=== PATIENT | female | born 1955 | race Caucasian/White ===

== ENCOUNTER 2023-03-14 07:19 | Observation (INO) ==
--- NOTE | 2023-03-06 09:01 | Anesthesiology Consultation ---
Date of Service March 06, 2023 Assessment & Plan (1) Encounter for pre-operative examination: - Covid screening: Per circular saw filer on 03/05/23: No known Covid positive contacts or current Covid related symptoms. No COVID positive test result in the past 90 days noted. -Outpatient joint assessment: Pt currently scheduled for inpatient pathway. If surgeon requests review for outpatient joint pathway, patient is not recommended candidate for outpatient joint program from anesthesia standpoint. -Possible difficult intubation:Hx trach(placed post-op thyroidectomy in 2019 due to surgical complications per pt)- subsequently removed 5 months later. No surgeries requiring intubation since then. - Chronic LLE edema: Chronic issue, fluctuating in severity for months-year. Blood clot ruled out with previous imaging per patient. Patient questioned if possible side effect of amlodipine (multiple family members had similar reaction with Amlodipine). She states that the Amlodipine has been on hold for approximately one week and swelling has improved (denies redness/warmth/pain to LLE). Patient reports that BP has been well controlled since Amlodipine stopped. Note written to PCP regarding LLE swelling- Per response from PCP office, they have office visit scheduled 03/12 to address further ([facility], [facility]). Chart Review Chart Review: Patient NOT seen in Pre Admission Testing History Surgery Operation Date: 03/14/23 11:45 Proposed Procedures p Right Total Knee Arthroplasty - Manuel Schneider MD Height/Weight Height: 5 ft 4 in Weight: 127.006 kg Allergies Allergy/AdvReac Type Severity Reaction Status Date / Time Penicillins Allergy Unknown RASH Unverified 03/05/23 16:02 Medications Home Medications Medication Instructions Recorded Confirmed Last Taken acetaminophen 500 mg tablet 1,000 mg PO TID 06/16/22 03/05/23 Unknown (Tylenol Extra Strength) ascorbic acid (vitamin C) 500 mg 500 mg PO 1500 06/16/22 03/05/23 Unknown tablet (Vitamin C) calcitriol 0.25 mcg capsule 0.5 mcg PO 1500 06/16/22 03/05/23 Unknown ferrous sulfate 325 mg (65 mg 325 mg PO 1500 06/16/22 03/05/23 Unknown iron) tablet levothyroxine 125 mcg tablet 125 mcg PO QAM 06/16/22 03/05/23 Unknown lisinopril 20 mg tablet 20 mg PO QAM 06/16/22 03/05/23 Unknown metoprolol succinate 50 mg 50 mg PO BID 06/16/22 03/05/23 Unknown tablet,extended release 24 hr omeprazole 20 mg tablet,delayed 20 mg PO QAM 06/16/22 03/05/23 Unknown release potassium chloride 20 mEq 20 meq PO QPM 06/16/22 03/05/23 Unknown tablet,extended release rosuvastatin 10 mg tablet 10 mg PO QAM 06/16/22 03/05/23 Unknown vedolizumab 300 mg intravenous 300 mg IV Q8WK 03/05/23 03/05/23 Unknown solution (Entyvio) Past Medical History Medical History Edema of left lower extremity Chronic LLE (fluctuating for years), blood clot ruled out with imaging ordered by PCP, patient questioned if possible side effect of amlodipine. Amlodipine held for approximately one week and swelling has improved (as of 03/06/23 phone assessment) GERD (gastroesophageal reflux disease) History of skin cancer removed History of thyroid cancer Dx 2019 s/p thyroidectomy HLD (hyperlipidemia) HTN (hypertension) Osteoarthritis Post-surgical hypothyroidism Sleep apnea CPAP (compliant) Ulcerative colitis Follows with GI Past Surgical History Surgical History Difficult intubation Hx trach (placed post-op thyroidectomy in 2019 due to complications per pt)- subsequently removed 5 months later History of anesthesia problem Thyroidectomy (2019) for thyroid cancer- per pt, unable to extubate post-op ([facility]) - required tracheostomy (x5 months > then removed) History of back surgery + Hardware History of cardiac catheterization 2018 ([facility]) > no stents History of colonoscopy History of total thyroidectomy History of tracheostomy D/t complications following thyroidectomy at [facility] (2019), subsequently removed 5 months later History of tubal ligation History of wisdom tooth extraction S/P thyroid biopsy Slow to wake up after anesthesia Social History Smoking Status: Never smoker Do You Dip or Chew Tobacco: No Hx Alcohol Use: No Hx Substance Use: No substance use type: does not use Lab Results Anesthesia Preop Results Results Anesthesia Widget: WBC 4.92 K/ul (4.8-10.8) 02/19/23 Hgb 14.6 g/dl (12.0-16.0) 02/19/23 Hct 43.6 % (37.0-47.0) 02/19/23 Plt 251 K/uL (130-400) 02/19/23 Na 141 mmol/L (136-145) 02/19/23 K 4.0 mmol/L (3.5-5.1) 02/19/23 Cl 104 mmol/L (98-107) 02/19/23 CO2 27 mmol/L (21-32) 02/19/23 BUN 10 mg/dl (6-23) 02/19/23 Creat 0.58 mg/dl (0.6-1.2) L 02/19/23 Glucose Level 95 mg/dl (70-99(Fasting)) 02/19/23 PT 10.9 Seconds (9.0-12.0) 02/19/23 PTT 26.3 Seconds (21.0-31.0) 02/19/23 INR 1.0 (0.9-1.1) 02/19/23 Urine Color Yellow 02/19/23 Urine Appearance Clear (Clear) 02/19/23 Urine pH 6.5 (4.5-7.5) 02/19/23 Urine Specific [place] 1.011 (1.000-1.030) 02/19/23 Urine Protein Negative (Negative) 02/19/23 Urine Glucose (UA) Negative (Negative) 02/19/23 Urine Ketones Negative (Negative) 02/19/23 Urine Blood Trace (Negative) H 02/19/23 Urine Nitrite Negative (Negative) 02/19/23 Urine Bilirubin Negative (Negative) 02/19/23 Urine Urobilinogen Negative (Negative) 02/19/23 Urine Leukocyte Esterase Trace (Negative) H 02/19/23 Urine WBC (Auto) 1-5 /hpf (0-5) 02/19/23 Urine RBC (Auto) 0-4 /hpf (0-4) 02/19/23 Urine Hyaline Casts (Auto) 0 /lpf (0-5) 02/19/23 Urine Epithelial Cells (Auto) 20-30 /lpf (0-5) H 02/19/23 Urine Bacteria (Auto) Negative (Negative) 02/19/23 Testing Electrocardiogram Date: 06/23/22 Findings: + NSR @ (82) Chest X-Ray Date: 06/23/22 FINDINGS: Lung volumes are normal. There is moderate enlargement of the cardiac silhouette. There is no pneumothorax or pleural effusion. Linear left lung opacity reflects atelectasis or scarring. Mediastinal contours are normal. There is no evidence for pulmonary edema. IMPRESSION: No acute cardiopulmonary findings. Cardiomegaly. Echocardiogram Date: 10/30/17 EF 55%. Top normal LV wall thickness. Grade 1 diastolic dysfunction. Slight LAD. Mild MR. Physiologic DC. Stress Test Date: 10/31/17 Type: nuclear Lexiscan stress ECG was negative for myocardial ischemia. Large, severe, partially reversible defect suggestive of ischemia on top of breast attenuation artifact. Small severe, reversible apical ischemia. No evidence of myocardial infarction. LVEF 69%. Subsequent cardiac cath done 11/2017 with no significant findings. Cardiac Catheterization Date: 11/12/17 Normal epicardial coronary arteries. Normal LV systolic function. Normal LV filling pressures. "Patient is considered low risk for perioperative myocardial ischemia"
--- NOTE | 2023-03-13 10:26 | History & Physical Report ---
Date of Service March 13, 2023 Assessment & Plan (1) Primary osteoarthritis of right knee: Plan: Treatment options discussed with patient. She would like to proceed with surgery. Risks, benefits and alternatives to surgery including but not limited to infection, DVT, pain, stiffness, need for revision surgery, damage to blood vessels, damage to nerves, PE, , were discussed with the patient and they wish to proceed. Plan on right total knee arthroplasty scheduled for [facility] on 03/14/[address] Schneider. Plan on Xarelto post op for DVT prophylaxis. She would like to go to [place] upon discharge from the hospital. All questions answered. Patient will follow up post op. History of Present Illness Chief Complaint: Right knee pain Primary Care Provider: Anjelica Huff 67yo female with PMHx significant for HTN, high cholesterol, UC, ALEJANDRA, hypothyroidism who presents with ongoing right knee pain. She has failed conservative measures. Pain is interfering with daily activities. Previously was scheduled for knee replacement earlier this year but was cancelled due to diverticulitis. Her ulcerative colitis is now much better controlled and has been cleared to proceed with surgery. Patient denies headaches, sweats, fevers, chills, double vision, blurred vision, cough, sore throat, dysphagia, chest pain, sob, wheezing, n/v/d/c, numbness, tingling, fatigue, urinary symptoms, mood disorders. ROS positive for right knee pain and stiffness. Allergies Allergy/AdvReac Type Severity Reaction Status Date / Time Penicillins Allergy Unknown RASH Unverified 03/05/23 16:02 Home Medications Medication Instructions Recorded Confirmed Type acetaminophen 500 mg tablet 1,000 mg PO TID 06/16/22 03/05/23 History (Tylenol Extra Strength) ascorbic acid (vitamin C) 500 mg 500 mg PO 1500 06/16/22 03/05/23 History tablet (Vitamin C) calcitriol 0.25 mcg capsule 0.5 mcg PO 1500 06/16/22 03/05/23 History ferrous sulfate 325 mg (65 mg 325 mg PO 1500 06/16/22 03/05/23 History iron) tablet levothyroxine 125 mcg tablet 125 mcg PO QAM 06/16/22 03/05/23 History lisinopril 20 mg tablet 20 mg PO QAM 06/16/22 03/05/23 History metoprolol succinate 50 mg 50 mg PO BID 06/16/22 03/05/23 History tablet,extended release 24 hr omeprazole 20 mg tablet,delayed 20 mg PO QAM 06/16/22 03/05/23 History release potassium chloride 20 mEq 20 meq PO QPM 06/16/22 03/05/23 History tablet,extended release rosuvastatin 10 mg tablet 10 mg PO QAM 06/16/22 03/05/23 History vedolizumab 300 mg intravenous 300 mg IV Q8WK 03/05/23 03/05/23 History solution (Entyvio) Past Med/Surg History Medical History Edema of left lower extremity Chronic LLE (fluctuating for years), blood clot ruled out with imaging ordered by PCP, patient questioned if possible side effect of amlodipine. Amlodipine held for approximately one week and swelling has improved (as of 03/06/23 phone assessment) GERD (gastroesophageal reflux disease) History of skin cancer removed History of thyroid cancer Dx 2019 s/p thyroidectomy HLD (hyperlipidemia) HTN (hypertension) Osteoarthritis Post-surgical hypothyroidism Sleep apnea CPAP (compliant) Ulcerative colitis Follows with GI Surgical History Difficult intubation Hx trach (placed post-op thyroidectomy in 2019 due to complications per pt)- subsequently removed 5 months later History of anesthesia problem Thyroidectomy (2019) for thyroid cancer- per pt, unable to extubate post-op ([facility]) - required tracheostomy (x5 months > then removed) History of back surgery + Hardware History of cardiac catheterization 2018 ([facility]) > no stents History of colonoscopy History of total thyroidectomy History of tracheostomy D/t complications following thyroidectomy at [facility] (2019), subsequently removed 5 months later History of tubal ligation History of wisdom tooth extraction S/P thyroid biopsy Slow to wake up after anesthesia Social History Smoking Status: Never smoker Second Hand Exposure: No; Do You Dip or Chew Tobacco: No; Hx Alcohol Use: No Hx Substance Use: No Preferred Language: B[place] Communication Ability: Effective Supervisor [employer] Required: No Beliefs That Will Affect Care: None Current Living Situation: Spouse Current Living Situation Comment: lives with ( is not in good health) Feels Safe at Home: Yes Safety Concerns: Feels Safe At This Time Assistive Devices: Glasses Review of Systems All systems reviewed & are unremarkable except as noted in HPI & below Physical Exam Constitutional: well developed and well nourished; no acute distress Eyes: PERRL, conjunctivae normal, anicteric sclerae ENMT: external ear and nose normal, oropharynx normal Neck: trachea midline, no thyromegaly Respiratory: normal respiratory effort, lungs clear to auscultation Cardiovascular: Rate/Rhythm: regular rate and regular rhythm Heart Sounds: no murmur Extremities: + edema Musculoskeletal: right knee: Mild effusion. Diffuse tenderness. Positive Rashaun's. Stable to valgus and varus stress. ROM 10-100 degrees. Skin: no rashes, warm and dry Neurologic: patellar DTR's 2+ bilat, sensation intact Psychiatric: A+Ox3, euthymic affect Results & Data Diagnostic Findings X-RAY Knee 4 Or More Views RT: Valgus alignment. End-stage osteoarthritis right knee, [id number] lateral compartment. There is periarticular osteophytes all 3 compartments.
[~2023-03-14 07:19] MED LIST: ACETAMINOPHEN 500 MG TAB PO SCH; BUPIVACAINE 0.5 % 5 MG/1 ML PF 10ML VIAL ONE; CeleBREX 200 MG CAP PO SCH; FAMOTIDINE 20 MG TAB PO SCH; GABAPENTIN 300 MG CAP PO SCH; KETAMINE 50 MG/5 ML SYRINGE ONE; LR 500ML BOLUS, THEN 15ML/HR IV SCH; LR 60ML/HR IV SCH; METOCLOPRAMIDE HCL 10 MG TABLET PO SCH; MIDAZOLAM HCL 1 MG/ML 2ML VIAL ONE; ROPIVACAINE 0.5% 5 MG/ML 30 ML VIAL ONE; ROPIVACAINE 0.5% HCL/PF 150 MG, BUPIVACAINE 0.75% MPF 20 ML, EPINEPHrine 30MG/30ML (OR ... INSTIL SCH; TRANEXAMIC ACID 1,000 MG **IV Intra-op IV SCH; TRANEXAMIC ACID 1,000 MG **IV Pre-op IV SCH; VANCOMYCIN HCL 2,000 MG in SODIUM CHLORIDE 0.9% 500 ML IV SCH; dexAMETHasone 4 MG TAB PO SCH
--- NOTE | 2023-03-14 07:50 | History & Physical Bridge Note ---
Date of Service March 14, 2023 History & Physical Bridge Note I have examined the patient, reviewed the History & Physical and in the interval since the performance of the History & Physical I have noted the following changes of clinical significance: no changes noted
[2023-03-14] MEDS ORDERED: ORTHO JOINT ANESTHETIC ONE (08:32)
[2023-03-14] MEDS ORDERED: ONDANSETRON INJ 2 MG/ML 2 ML VIAL ONE (09:57)
[2023-03-14] MEDS ORDERED: PROPOFOL IV EMULSION 10 MG/ML 20 ML VIAL IV ONE ×3 (09:57→11:31)
[2023-03-14] MEDS ORDERED: GLYCOPYRROLATE 0.2 MG/ML VIAL ONE (09:57)
[2023-03-14] MEDS ORDERED: LIDOCAINE 2% 2 ML VIAL/AMP(20MG/ML) INFIL ONE (09:57)
--- NOTE | 2023-03-14 11:39 | Post Operative Brief Note ---
Immediate Post Op Note v1 Date of Surgery March 14, 2023 Pre & Post Diagnosis Operation Date: 03/14/23 09:00 Pre-Op Diagnosis: Primary osteoarthritis of right knee, Morbid obesity BMI 48.8 Post-Op Diagnosis: Primary osteoarthritis of right knee, morbid obesity BMI 48.8 I identified the patient and participated in the time-out.: Yes Procedure Operation Date: 03/14/23 09:00 Actual Procedures p Right Total Knee Arthroplasty(Right), lateral release, chip Acticoat superficial wound VAC, increased difficulty morbid obesity BMI 40.8 - Manuel Schneider MD Surgeon Manuel Schneider MD Formula Weigher Catarino WATTERS Estimated Blood Loss 10 Findings Consistent with Post-Op Diagnosis Specimens bone cuts Drains Hemovac Drain Anesthesia Type MAC Spinal Regional Complications none Disposition Disposition: Recovery Room Overlapping Procedure I was present for: the critical portions of procedure. Back up surgeon: was not required during procedure.
--- NOTE | 2023-03-14 12:48 | XRay Report ---
XR knee RT 1 or 2V routine CLINICAL HISTORY: Surgical Post Op TECHNIQUE: 2 views of the right knee were obtained. Comparison: None available at the time of this dictation. FINDINGS: Patient is status post total knee arthroplasty with expected postsurgical changes including soft tiss ue swelling and subcutaneous emphysema. No periarticular lucency or hardware fracture is seen. IMPRESSION: Expected postoperative appearance status post placement of total knee arthroplasty. ACT 112: Negative or not required by law. Electronically signed by: Manuel Crowell M.D. 03/14/2023 12:46 PM
[2023-03-14] MEDS ORDERED: NALOXONE HCL 0.4 MG/1 ML VIAL/CARP IV PRN (13:27)
[2023-03-14] MEDS ORDERED: bisacodyL 10 MG SUPP PR PRN (13:27)
[2023-03-14] MEDS ORDERED: diphenhydrAMINE 50 MG/ML VIAL IV PRN (13:27)
[2023-03-14] MEDS ORDERED: SODIUM CHLORIDE 0.9% 1000ML 1,000 ML IV SCH (13:27)
[2023-03-14] MEDS ORDERED: ONDANSETRON INJ 2 MG/ML 2 ML VIAL IV PRN (13:27)
[2023-03-14] MEDS ORDERED: HYDROmorphone INJ 0.5 MG/0.5 ML SYR IV PRN (13:27)
[2023-03-14] MEDS ORDERED: VANCOMYCIN CONSULT ACTIVE PRN (13:27)
[2023-03-14] MEDS ORDERED: MAGNESIUM HYDROXIDE SUSP 30 ML UDC PO PRN (13:27)
[2023-03-14] MEDS: ACETAMINOPHEN 500 MG TAB PO SCH ×2 (14:24→21:02)
[2023-03-14] MEDS ORDERED: CALCITRIOL 0.25 MCG CAPSULE PO SCH (15:00)
[2023-03-14] MEDS ORDERED: ASCORBIC ACID 500 MG TAB PO SCH (15:00)
--- NOTE | 2023-03-14 16:20 | Hospitalist Consultation ---
Date of Consultation March 14, 2023 Assessment & Plan (1) Primary osteoarthritis of right knee: s/p Right Total Knee Arthroplasty(Right), lateral release, chip Acticoat superficial wound VAC, increased difficulty morbid obesity BMI 40.8 - Manuel Schneider MD EBL 10cc Pain control, bowel regimen per primary service DVT prophylaxis: Xarelto to begin tomorrow. Discussed monitoring for bleeding w/ her hx UC Patient planning on [facility] at discharge for rehab given undergoing HD and patient wishes (known prior to surgery) - PT/OT consults per primary service Did discuss may take a day or two depending bed availability/insurance auth but will hopefully be able to discharge tomorrow to [facility] if therapy indicates, insurance approves/auth received and bed available at [facility] in AM (2) HTN (hypertension): recent adjustment to home meds which discontinued her amlodipine due to swelling and increased lisinopril to 40mg daily hold lisinopril for AM until BP/renal function assessed continue metoprolol succinate 50mg BID monitor (3) HLD (hyperlipidemia): continue statin daily (4) Post-surgical hypothyroidism: remains on Synthroid 125mcg daily consider repeating TSH outpatient if no recent checks given LE edema (reportedly resolved w/ discontinuation of amlodipine) --discussed w/ patient to have PCP check once recovered from knee surgery (5) Ulcerative colitis: follows GI, on Entyvio. recent bout diverticulitis/bleeding earlier this year which postponed current procedure no issues at present reported (6) Morbid obesity: weight loss/dietary changes to be encouraged Plan Thank you for allowing Hospitalist service to participate in the care of Ms. Parker. Hospitalist service will follow along in the morning. Please call with any questions/concerns. Supervising Physician Co-Signing Physician Notes PA Supervision Note: I personally saw and examined the patient. I verified all hidalgo points and agree with JANENE Bautista with the following exceptions and/or additions: Subjective: 67-year-old female past medical history significant for obesity, hypertension, hyperlipidemia, ulcerative colitis, sleep apnea, right knee osteoarthritis admitted to the hospital by orthopedic service for RIGHT TKA. Hospitalist service was consulted for concurrent medical management. Patient reports she is doing fairly well after her procedure, some pain well-controlled with PRNs. Denies other issues including chest pain, trouble breathing, abdominal pain, diarrhea. Physical exam: Vitals reviewed Gen: Alert and oriented, NAD, obese HEENT: anicteric sclerae, EOMI CV: RRR no mgr nl S1S2 Pulm: CTAB no wcr Ext: no edema, 2+ DP pulses Skin: no rashes, warm/dry, right knee with dressing, no purulence noted, no surrounding erythema Neuro: No focal neurologic deficits Labs, Rads, and ECG reviewed Assessment and Plan: Right knee osteoarthritis: S/p right TKA, care and DVT prophylaxis per orthopedic service. Will continue Xarelto 10 mg daily for now. [facility]. Ulcerative colitis: No evidence of flare, no interventions. Hypertension: Continue home lisinopril and metoprolol. Plan otherwise as described above. Hospitalist service will follow. History of Present Illness Reason for Consultation: medical management Requesting Physician: Dr Schneider Attending Physician: Maneul Schneider MD History of Present Illness 67yo female with PMHx significant for HTN, HLD, hypothyroidism, ALEJANDRA, osteoarthritis presented for RIGHT TKA with Dr Schneider on 03/14. EBL 10cc. Evaluated in room 316, doing well. 2 sons at bedside presently. Not eaten much yet but had some fluids. No further IVF as decent diuresis. Discussed if tolerating PO can avoid further IVF. No pain at present. No fever/chills, chest pain, shortness of breath. On 2L post op and resting, has CPAP in room and will place order for use. Patient recently had lisinopril increased to 40mg daily and discontinued amlodipine for complaints of LE edema with improvement in symptoms reported. Discussed hypothyroidism and if recent TSH obtained. She is unsure. Discussed would not check in AM in setting of recent surgery but would have PCP check if not done recently to ensure no adjustments need made. No issues w/ constipation given her underlying ulcerative colitis, on Entyvio. Discussed to monitor for any significant bleeding while on Xarelto for DVT prophylaxis, which is ordered to start tomorrow. She is hopeful for dc to [facility], pending therapy evals and insurance authorization. Sons at bedside state their dad is undergoing HD and wanting rehab to help with some ease initially prior to dc home. 2 steps to entry at home. Allergies Allergy/AdvReac Type Severity Reaction Status Date / Time Penicillins Allergy Unknown RASH Verified 03/14/23 07:59 Home Medications Medication Instructions Recorded Confirmed Type ascorbic acid (vitamin C) 500 mg 500 mg PO 1500 06/16/22 03/14/23 History tablet (Vitamin C) calcitriol 0.25 mcg capsule 0.5 mcg PO 1500 06/16/22 03/14/23 History levothyroxine 125 mcg tablet 125 mcg PO QAM 06/16/22 03/14/23 History lisinopril 20 mg tablet 40 mg PO QAM 06/16/22 03/14/23 History metoprolol succinate 50 mg 50 mg PO BID 06/16/22 03/14/23 History tablet,extended release 24 hr potassium chloride 20 mEq 20 meq PO QPM 06/16/22 03/14/23 History tablet,extended release rosuvastatin 10 mg tablet 10 mg PO QAM 06/16/22 03/14/23 History vedolizumab 300 mg intravenous 300 mg IV Q8WK 03/05/23 03/14/23 History solution (Entyvio) acetaminophen 500 mg tablet 1,000 mg PO Q8 #60 tabs 03/15/23 Rx (Tylenol Extra Strength) oxycodone 5 mg tablet 5 - 10 mg PO .Q4h-6h PRN pain #30 03/15/23 Rx tabs rivaroxaban 10 mg tablet (Xarelto) 10 mg PO DAILY #30 tabs 03/15/23 Rx sulfamethoxazole 800 1 tab PO BID 10 days #20 tabs 03/15/23 Rx mg-trimethoprim 160 mg tablet (Bactrim DS) Patient History Medical History Edema of left lower extremity Chronic LLE (fluctuating for years), blood clot ruled out with imaging ordered by PCP, patient questioned if possible side effect of amlodipine. Amlodipine held for approximately one week and swelling has improved (as of 03/06/23 phone assessment) GERD (gastroesophageal reflux disease) History of skin cancer removed History of thyroid cancer Dx 2019 s/p thyroidectomy HLD (hyperlipidemia) HTN (hypertension) Osteoarthritis Post-surgical hypothyroidism Sleep apnea CPAP (compliant) Ulcerative colitis Follows with GI Surgical History Difficult intubation Hx trach (placed post-op thyroidectomy in 2019 due to complications per pt)- subsequently removed 5 months later History of anesthesia problem Thyroidectomy (2019) for thyroid cancer- per pt, unable to extubate post-op ([facility]) - required tracheostomy (x5 months > then removed) History of back surgery + Hardware History of cardiac catheterization 2018 ([facility]) > no stents History of colonoscopy History of total thyroidectomy History of tracheostomy D/t complications following thyroidectomy at [facility] (2019), subsequently removed 5 months later History of tubal ligation History of wisdom tooth extraction S/P thyroid biopsy Slow to wake up after anesthesia Social History Smoking Status: Never smoker Second Hand Exposure: No; Do You Dip or Chew Tobacco: No; Hx Alcohol Use: No Hx Substance Use: No Preferred Language: Lao Communication Ability: Effective Encoding Machine Operator Required: No Beliefs That Will Affect Care: None Current Living Situation: Spouse Current Living Situation Comment: lives with ( is not in good health) Feels Safe at Home: Yes Safety Concerns: Feels Safe At This Time Assistive Devices: CPAP and Walker Review of Systems Review of Systems: All systems reviewed & are unremarkable except as noted in HPI & below Physical Exam Physical Exam: General: WD/WN morbidly obese female resting in bed, sons at bedside, NAD HEENT: head normocephalic, atraumatic, thick neck, prior scar noted, trachea midline, mm slightly dry Resp: CTA, diminished in the bases, on 2L post op, no obvious wheezing/crackles. CV: RRR, no significant m/r/g, trace pedal edema, pulses palpable, calves supple/nontender, cap refill wnl GI: +BS, soft/NT MSK/Neuro: dressing to RIGHT knee c/d/i, PATRICA wrap in place, hemovac w/ bloody drainage noted, NVI, sensation slightly diminished to light touch R plantar surface but strength intact bilateral dorsi/plantar flexion Psych: AOx3, pleasant and cooperative with exam Results & Data Results & Data Vital Signs (Past 12 Hours) Vital Signs Temp Pulse Pulse Resp BP BP Pulse Ox 03/14/23 15:15 90 16 122/77 93 03/14/23 14:08 88 16 171/82 H 96 03/14/23 13:40 36.4 C L 86 16 156/85 H 95 03/14/23 13:51 36.4 C L 88 16 156/85 H 94 03/14/23 13:10 03/14/23 13:10 36.7 C 82 16 146/86 H 96 03/14/23 12:55 89 20 158/64 H 97 03/14/23 12:45 85 14 104/89 93 03/14/23 12:35 79 16 166/88 H 93 03/14/23 12:25 36.5 C 85 20 158/91 H 93 03/14/23 12:20 145/85 H 03/14/23 12:15 85 20 162/83 H 97 03/14/23 12:08 36.5 C 90 22 150/78 H 93 03/14/23 08:02 37.1 C 77 20 166/84 H 96 O2 Del Method O2 Flow Rate 03/14/23 15:15 Nasal Cannula 2 03/14/23 14:08 Nasal Cannula 2 03/14/23 13:40 Nasal Cannula 1.5 03/14/23 13:51 Nasal Cannula 1.5 03/14/23 13:10 Nasal Cannula 2 03/14/23 13:10 Nasal Cannula 2 03/14/23 12:55 Nasal Cannula 2 03/14/23 12:45 Nasal Cannula 2 03/14/23 12:35 Nasal Cannula 2 03/14/23 12:25 Room Air 03/14/23 12:20 03/14/23 12:15 Oxymask 14 03/14/23 12:08 Oxymask 14 03/14/23 08:02 Room Air Laboratory Results 03/14/23 Range/Units 07:29 Blood Type B Positive Antibody Screen NEGATIVE Diagnostic Findings Knee X-Ray 03/14/23 12:17 XR knee RT 1 or 2V routine CLINICAL HISTORY: Surgical Post Op TECHNIQUE: 2 views of the right knee were obtained. Comparison: None available at the time of this dictation. FINDINGS: Patient is status post total knee arthroplasty with expected postsurgical changes including soft tissue swelling and subcutaneous emphysema. No periarticular lucency or hardware fracture is seen. IMPRESSION: Expected postoperative appearance status post placement of total knee arthroplasty. ACT 112: Negative or not required by law. Electronically signed by: Manuel Crowell M.D. 03/14/2023 12:46 PM PG Care Time/CCT Total # of Minutes Spent Total Time Spent with Patient: Total time spent is greater than 50% in coordination of care (as documented) at patient's floor/unit and/or counseling patient: Coding Level of Care Code 35555 IN/OBS CONSULT LVL 3,45M Diagnoses Primary osteoarthritis of right knee M17.11 HTN (hypertension) I10 HLD (hyperlipidemia) E78.5 Post-surgical hypothyroidism E89.0 Ulcerative colitis K51.90 Morbid obesity E66.01
--- NOTE | 2023-03-14 17:02 | Operative Report ---
Post Operative Report Pre & Post Diagnosis Operation Date: 03/14/23 09:00 Pre-Op Diagnosis: Primary end-stage osteoarthritis of right knee, morbid obesity BMI 48.8 Post-Op Diagnosis: Primary end-stage osteoarthritis of right knee, morbid obesity BMI 48.8 I identified the patient and participated in the time-out.: Yes Procedure Operation Date: 03/14/23 09:00 Actual Procedures p Right Total Knee Arthroplasty(Right), lateral release, chip and Acticoat superficial wound VAC application, increased difficulty due to morbid obesity BMI 48.8. - Manuel Schneider MD Surgeon Manuel Schneider MD Vice President Financial Catarino WATTERS Estimated Blood Loss 10 Findings Consistent with Post-Op Diagnosis Specimens Bone cuts Drains 2 Hemovac Anesthesia Type MAC Spinal Regional Complications none Disposition Disposition: Recovery Room Indications 67-year-old female with severe end-stage osteoarthritis failed conservative management. Radiographs demonstrate tricompartmental osteoarthritis severe large osteophytes [id number] lateral compartment and patellofemoral osteoarthritis. Description of Procedure patient taken to the operating room the size under Spinal MAC regional block anesthesia. Patient was placed supine on the operating table. A pneumatic tourniquet was placed about the very obese right upper upper thigh. The right lower extremity was prepped and draped in sterile fashion. Knee exam demonstrated obese knee with limited range of motion 0 through 90 degrees. Patient had chronic skin condition with raised dried patch of skin throughout all of her skin areas. No open wounds at all.. The leg was elevated exsanguinated with an Esmarch bandage and pneumatic tourniquet was raised to 350 millimeters of mercury. Skin incised sharply in longitudinal fashion. larger than typical incision made due to the obesity. a very deep layer of fat was incised and Subcutaneous flaps elevated. Incision was made through the medial retinaculum extending up in the mid third of the quadriceps tendon and down to the medial tibial tubercle. Intra-articular findings demonstrated tricompartmental osteoarthritis. [id number] lateral compartment hypoplastic lateral femoral condyle chronic lateral meniscus tear with subluxation chronic ACL tear. The [employer] triathlon total knee arthroplasty system was used. To expose the knee the infrapatellar fat pad was resected. The meniscal remnants and posterior cruciate ligament were resected. The anterior fat pad over the femur in the area of the anterior flange of the femoral component was resected. Lateral synovial bands release. The femur was exposed. An intramedullary drill hole was made into the canal. A guide arjun was placed. Distal femoral cutting guide was adjusted to resect a 5 degree valgus cut with 8 millimeters distal femur resected. The knee was extended and a subperiosteal peel lateral release was performed around the patella. Patella width was measured and width was reproduced using a freehand cut technique and a 31 mm symmetrical patella component. The 3 drill holes were made and the excess lateral facet was beveled off to prevent any impingement. Attention was taken back to the femur which was exposed with retractors and the femoral sizing guide was pinned in position. The drill holes were placed in 3 of external rotation to match epicondylar axis. Femur sized for a 4 component. The 4-in-1 cutting block was placed and then the anterior posterior and chamfer cuts are made. The tibia was then subluxed. The external tibial cutting guide was just to make a perpendicular cut to the long axis of the tibia below the most deficient bone loss side laterally. A lamina canvas products sales representative was used and the flexion extension gaps were ba lanced. All posterior osteophytes removed. All meniscal remnants were resected. The tibia exposed and the trial tibial component size 3 was externally rotated in line with the tibial tubercle and pinned in position. The punch for stem was used. The notch cutting device was centered appropriately and the femoral notch cut was made. The femoral trial was inserted. Trial tibial inserts were placed and size 11 gave balanced ligaments through flexion and extension. Patella tracking was assessed. The patella tracked with some lateral tilt so I did a lateral release noting the IT band was tight and this corrected the patella tracking to central. The trial components were then removed and the orthomix anesthetic cocktail was injected per protocol. The knee was then copiously irrigated with pulsatile lavage saline solution. Final components were then cemented with Refobacin cement. Final components were triathlon size 4 right femoral component, a 3 tibial universal baseplate with a 12 x 50 mm cemented stem and 3 x 11 mm X.3 polyethylene tibial bearing insert and the 31 mm symmetrical tibial polyethylene. After the cement cured the Betadine soak was used for 3 minutes. Further pulsatile lavage irrigation was then performed and 2 Hemovac drains were brought out laterally. The quadriceps tendon and medial retinaculum were closed with figure of 8 #1 Vicryl sutures. The knee was taken through full range of motion and the repair was secure. Knee range of motion was 0 through 120 degrees. The subcutaneous tissues were closed with 2-0 Vicryl sutures. Skin was closed with luther. chip and Acticoat superficial wound VAC was applied. The patient tolerated the procedure well. Catarino WATTERS was my physician preschool assistant principal who participated as assistant center manager and was involved in all aspects of the procedure including patient positioning prepping and draping,leg positioning ,soft tissue retraction and instrument management and participated in the closing, application of the superficial wound VAC and will participate in postoperative care of the patient. there was increased difficulty due to her obesity which added 40 minutes to the length of the procedure The patient tolerated the procedure well. I attest to the content of the Intraoperative Record and any orders documented therein. Any exceptions are noted below.
[2023-03-14] MEDS ORDERED: POTASSIUM CHLORIDE CRTAB 20 MEQ TABCR PO SCH (21:00)
[2023-03-14] MEDS ORDERED: SENNA 8.6 MG TAB PO SCH (21:00)
[2023-03-14] MEDS: oxyCODONE HCL IR 5 MG TAB (IMMEDIATE RELEASE) PO PRN (21:01)
[2023-03-14] MEDS: METOPROLOL SUCC 50MG EXT REL TAB PO SCH (21:02)
[2023-03-14] MEDS: DOCUSATE SODIUM 100 MG CAP PO SCH (21:36)
[2023-03-14] MEDS ORDERED: VANCOMYCIN HCL 2,000 MG in SODIUM CHLORIDE 0.9% 500 ML IV SCH (22:15)
[2023-03-15] MEDS: ACETAMINOPHEN 500 MG TAB PO SCH ×2 (05:50→13:06)
[2023-03-15] MEDS ORDERED: LEVOTHYROXINE SODIUM 125 MCG TABLET PO SCH (06:30)
[2023-03-15 06:46] LABS: BUN Creatinine Ratio 16.9 (10-20); Calcium 8.7 mg/dl (8.6-10.3); Creatinine Clr Calc Pharmacy 80.6 ml/min; Est GFR (African American) 77.2 ml/min; Est GFR (Non-African American) 66.6 ml/min; Potassium 4.3 mmol/L (3.5-5.1)
[2023-03-15 06:48] LABS: Hemoglobin 12.8 g/dl (12.0-16.0); Mean Corpuscular Hemoglobin 31.9 pg (25.0-34.0); Mean Corpuscular Hgb Conc 33.7 g/dL (32.0-36.0); Mean Corpuscular Volume 94.8 fL (80.0-100.0); Platelet Count 248 K/uL (130-400); RDW Coefficient of Variation 11.9 % (11.5-14.5); RDW Standard Deviation 41.8 fL (36.4-46.3); Red Blood Count 4.01 M/uL (4.20-5.40)
--- NOTE | 2023-03-15 07:22 | Orthopedic Progress Note ---
Date of Service March 15, 2023 Assessment & Plan (1) Primary osteoarthritis of right knee: Plan: Postop day #1 right total knee arthroplasty -PT/OT -Pain management as written -AM labs: Hemoglobin 12.8 acute blood loss anemia due to surgical loss versus dilutional. Mild leukocytosis likely reactive due to surgical stress versus perioperative steroids. Patient is asymptomatic. -DVT prophylaxis: SCDs, teds, Xarelto 10 mg -Discharge planning: Plan on discharge home when stable. Patient is planning on inpatient rehab. Case management is working on this. Admission and Anticipated Discharge Date Admission Date: March 14, 2023 Subjective Patient is postop day #1 right total knee. She is doing well postoperatively. Minimal pain. No other current complaints. Denies chest pain, shortness of breath, nausea/vomiting/diarrhea, headaches or dizziness. Review of Systems Review of Systems: All systems reviewed & are unremarkable except as noted in Subjective Physical Exam Physical Exam: Right knee: Dressing is clean, dry, intact. Toes are mobile with good dorsiflexion. No calf tenderness. Able to straight leg raise. Distally neurovascular status and sensation is grossly intact. Constitutional: WD/WN, vitals as above Results & Data Vital Signs (Past 12 Hours) Vital Signs Temp Pulse Resp BP Pulse Ox O2 Del Method 03/15/23 03:24 36.7 C 74 18 117/71 96 Room Air 03/14/23 23:14 36.8 C 69 18 115/70 96 Room Air 03/14/23 20:09 36.6 C 66 18 133/80 96 Room Air Laboratory Results Lab Results 03/14/23 03/15/23 03/15/23 Range/Units 07:29 05:58 05:58 WBC 12.50 H (4.8-10.8) K/ul RBC 4.01 L (4.20-5.40) M/uL Hgb 12.8 (12.0-16.0) g/dl Hct 38.0 (37.0-47.0) % MCV 94.8 (80.0-100.0) fL MCH 31.9 (25.0-34.0) pg MCHC 33.7 (32.0-36.0) g/dL RDW Std Deviation 41.8 (36.4-46.3) fL RDW Coeff of Peng 11.9 (11.5-14.5) % Plt Count 248 (130-400) K/uL MPV 11.0 (9.4-12.4) fL Sodium 138 (136-145) mmol/L Potassium 4.3 (3.5-5.1) mmol/L Chloride 106 (98-107) mmol/L Carbon Dioxide 22 (21-32) mmol/L Anion Gap 10 (3-11) BUN 15 (6-23) mg/dl Creatinine 0.89 (0.6-1.2) mg/dl Est Cr Clr Drug Dosing 80.6 ml/min Est GFR ( Amer) 77.2 ml/min Est GFR (Non-Af Amer) 66.6 ml/min BUN/Creatinine Ratio 16.9 (10-20) Glucose 146 H (70-99(Fasting)) mg/dl Calcium 8.7 (8.6-10.3) mg/dl Blood Type B Positive Antibody Screen NEGATIVE
--- NOTE | 2023-03-15 07:46 | Hospitalist Progress Note ---
Date of Service March 15, 2023 Assessment & Plan (1) Primary osteoarthritis of right knee: Plan: POD# 1s/p Right Total Knee Arthroplasty(Right), lateral release, chip Acticoat superficial wound VAC, increased difficulty morbid obesity BMI 40.8 - Manuel Schneider MD EBL 10cc Pain control, bowel regimen per primary service WBC elevation likely 2nd to steroids. Appears afebrile. Hgb 14.6-> 12.8, acute blood loss from surgery as well as dilutional aspect with IVF DVT prophylaxis: Xarelto started today. Discussed monitoring for bleeding w/ her hx UC Wanting [facility] but OBs, would need admitted 3 midnights. Discussed [facility] w/ CM at bedside. Agreeable - referrals sent and possible discharge today if have bed/accepted (2) HTN (hypertension): Plan: recent adjustment to home meds which discontinued her amlodipine due to swelling and increased lisinopril to 40mg daily Continues on metoprolol succinate BID, lisinopril resumed this morning and kidney function stable (3) HLD (hyperlipidemia): Plan: continue statin daily (4) Post-surgical hypothyroidism: Plan: remains on Synthroid 125mcg daily consider repeating TSH outpatient if no recent checks given LE edema (reportedly resolved w/ discontinuation of amlodipine) --discussed w/ patient to have PCP check once recovered from knee surgery (5) Ulcerative colitis: Plan: follows GI, on Entyvio. recent bout diverticulitis/bleeding earlier this year which postponed current procedure no issues at present reported (6) Morbid obesity: Plan: weight loss/dietary changes to be encouraged Plan Thank you for allowing Hospitalist service to participate in the care of Ms. Parker. Hospitalist service will sign off at this time, anticipate discharge to [facility] if bed available today. Please call with any questions/concerns. Admission and Anticipated Discharge Date Admission Date: March 14, 2023 Supervising Physician Co-Signing Physician Notes PA Supervision Note: I did not personally see or examine the patient. I verified all hidalgo points and agree with JANENE Otoole with the following exceptions and/or additions: none. Patient seen today and no changes to care plan from yesterday's note. For discharge to [facility] today. Subjective Evaluated this morning, doing well. Pain controlled, some dry cough, unchanged from baseline w/ using her CPAP. Wanting [facility] but as discussed w/ CM, need 3 midnight and no beds at yet. 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 No fever/chills, chest pain, shortness of breath.. She declined the miralax but agreeable to colace as with her prior back surgery and ulcerative colitis she had a "mess". She is passing gas and denies any increased abdominal pain or nausea at present. If accepted to [facility] today, stable for discharge from medical standpoint. Physical Exam Physical Exam: General: WD/WN morbidly obese female sitting up in chair, family at bedside, NAD HEENT: head normocephalic, atraumatic, thick neck, prior scar noted, trachea midline, mm slightly dry Resp: CTA, diminished in the bases, no w/c, on room air, occasional dry cough CV: RRR, no significant m/r/g, pedal edema/lymphedema, in stockings, pulses palpable, calves supple/nontender, cap refill wnl GI: +BS, soft/NT MSK/Neuro: dressing to RIGHT knee c/d/i, PATRICA wrap in place, hemovac w/ bloody drainage noted, NVI, sensation intact, pulses palpable Psych: AOx3, pleasant and cooperative with exam Skin: innumerable skin tags to chest Results & Data Results & Data Vital Signs (Past 12 Hours) Vital Signs Temp Pulse Resp BP Pulse Ox O2 Del Method 03/15/23 07:29 36.7 C 70 16 121/72 93 Room Air 03/15/23 03:24 36.7 C 74 18 117/71 96 Room Air 03/14/23 23:14 36.8 C 69 18 115/70 96 Room Air 03/14/23 20:09 36.6 C 66 18 133/80 96 Room Air Laboratory Results 03/15/23 03/15/23 03/14/23 Range/Units 05:58 05:58 07:29 WBC 12.50 H (4.8-10.8) K/ul RBC 4.01 L (4.20-5.40) M/uL Hgb 12.8 (12.0-16.0) g/dl Hct 38.0 (37.0-47.0) % MCV 94.8 (80.0-100.0) fL MCH 31.9 (25.0-34.0) pg MCHC 33.7 (32.0-36.0) g/dL RDW Std Deviation 41.8 (36.4-46.3) fL RDW Coeff of Peng 11.9 (11.5-14.5) % Plt Count 248 (130-400) K/uL MPV 11.0 (9.4-12.4) fL Sodium 138 (136-145) mmol/L Potassium 4.3 (3.5-5.1) mmol/L Chloride 106 (98-107) mmol/L Carbon Dioxide 22 (21-32) mmol/L Anion Gap 10 (3-11) BUN 15 (6-23) mg/dl Creatinine 0.89 (0.6-1.2) mg/dl Est Cr Clr Drug Dosing 80.6 ml/min Est GFR ( Amer) 77.2 ml/min Est GFR (Non-Af Amer) 66.6 ml/min BUN/Creatinine Ratio 16.9 (10-20) Glucose 146 H (70-99(Fasting)) mg/dl Calcium 8.7 (8.6-10.3) mg/dl Blood Type B Positive Antibody Screen NEGATIVE PG Care Time/CCT Total # of Minutes Spent Total Time Spent with Patient: Total time spent is greater than 50% in coordination of care (as documented) at patient's floor/unit and/or counseling patient: Coding Level of Care Code 10207 SUB INP/OBS CARE 2/35MIN Diagnoses Primary osteoarthritis of right knee M17.11 HTN (hypertension) I10 HLD (hyperlipidemia) E78.5 Post-surgical hypothyroidism E89.0 Ulcerative colitis K51.90 Morbid obesity E66.01
[2023-03-15] MEDS: DOCUSATE SODIUM 100 MG CAP PO SCH (08:07)
[2023-03-15] MEDS: METOPROLOL SUCC 50MG EXT REL TAB PO SCH (08:07)
[2023-03-15] MEDS ORDERED: MULTIVITAMIN TAB PO SCH (09:00)
[2023-03-15] MEDS ORDERED: ROSUVASTATIN CALCIUM 10 MG TAB PO SCH (09:00)
[2023-03-15] MEDS ORDERED: lisinopril 40 MG TAB PO SCH (09:00)
[2023-03-15] MEDS ORDERED: RIVAROXABAN 10 MG TABLET PO SCH (09:00)
[2023-03-15] MEDS: oxyCODONE HCL IR 5 MG TAB (IMMEDIATE RELEASE) PO PRN (13:05)
--- NOTE | 2023-03-16 09:15 | Discharge Summary ---
Date of Service March 16, 2023 Admission HPI Per Admitting Provider 67yo female with PMHx significant for HTN, high cholesterol, UC, ALEJANDRA, hypothyroidism who presents with ongoing right knee pain. She has failed conservative measures. Pain is interfering with daily activities. Previously was scheduled for knee replacement earlier this year but was cancelled due to diverticulitis. Her ulcerative colitis is now much better controlled and has been cleared to proceed with surgery. Patient denies headaches, sweats, fevers, chills, double vision, blurred vision, cough, sore throat, dysphagia, chest pain, sob, wheezing, n/v/d/c, numbness, tingling, fatigue, urinary symptoms, mood disorders. ROS positive for right knee pain and stiffness. Admission Exam Per Admitting Provider Physical Exam Constitutional: well developed and well nourished; no acute distress Eyes: PERRL, conjunctivae normal, anicteric sclerae ENMT: external ear and nose normal, oropharynx normal Neck: trachea midline, no thyromegaly Respiratory: normal respiratory effort, lungs clear to auscultation Cardiovascular: Rate/Rhythm: regular rate and regular rhythm Heart Sounds: no murmur Extremities: + edema Musculoskeletal: right knee: Mild effusion. Diffuse tenderness. Positive Rashaun's. Stable to valgus and varus stress. ROM 10-100 degrees. Skin: no rashes, warm and dry Neurologic: patellar DTR's 2+ bilat, sensation intact Psychiatric: A+Ox3, euthymic affect Principal Diagnosis right knee osteoarthritis Discharge Data Allergies Allergy/AdvReac Type Severity Reaction Status Date / Time Penicillins Allergy Unknown RASH Verified 03/14/23 07:59 Consultations 03/14/23 13:27 Consult Hospitalist Routine Procedures Performed Operation Date: 03/14/23 09:00 Actual Procedures p Right Total Knee Arthroplasty(Right) - Manuel Schneider MD Ordered Studies 03/14/23 05:00 US - OR guided needle placemen Routine Hospital Course (1) Primary osteoarthritis of right knee: Patient:GEETA PARKER Admit Date:03/14/23 MR#:[id number] Att Phy:Manuel Schneider M.D. Acct ID:[id number] Sonal Phy:Anjelica Huff PA-C Date:1955 Fam Phy: Age:67 Location:3E Sex:F Room/Bed:E316-1 cc: ~ *NOTICE TO RECEIVING [employer]/AGENCY This information is strictly Confidential and protected under [place] law. [place] law prohibits you from making any further disclosure of this information unless further disclosure is expressly permitted by the written consent of the person to whom it pertains or is authorized by law. A general authorization for the release of medical or other information is not sufficient for this purpose. Hospital accepts no responsibility if the information is made available to any other person, INCLUDING THE PATIENT. Date of Service March 15, 2023 Assessment & Plan (1) Primary osteoarthritis of right knee: Plan: Postop day #1 right total knee arthroplasty -PT/OT -Pain management as written -AM labs: Hemoglobin 12.8 acute blood loss anemia due to surgical loss versus dilutional. Mild leukocytosis likely reactive due to surgical stress versus perioperative steroids. Patient is asymptomatic. -DVT prophylaxis: SCDs, teds, Xarelto 10 mg -Discharge planning: Plan on discharge home when stable. Patient is planning on inpatient rehab. Case management is working on this. Admission and Anticipated Discharge Date Admission Date: March 14, 2023 Subjective Patient is postop day #1 right total knee. She is doing well postoperatively. Minimal pain. No other current complaints. Denies chest pain, shortness of breath, nausea/vomiting/diarrhea, headaches or dizziness. Review of Systems Review of Systems: All systems reviewed & are unremarkable except as noted in Subjective Physical Exam Physical Exam: Right knee: Dressing is clean, dry, intact. Toes are mobile with good dorsiflexion. No calf tenderness. Able to straight leg raise. Distally neurovascular status and sensation is grossly intact. Constitutional: WD/WN, vitals as above Results & Data Vital Signs (Past 12 Hours) Vital Signs Temp Pulse Resp BP Pulse Ox O2 Del Method 03/15/23 03:24 36.7 C 74 18 117/71 96 Room Air 03/14/23 23:14 36.8 C 69 18 115/70 96 Room Air 03/14/23 20:09 36.6 C 66 18 133/80 96 Room Air Laboratory Results Lab Results 03/14/23 03/15/23 03/15/23 Range/Units 07:29 05:58 05:58 WBC 12.50 H (4.8-10.8) K/ul RBC 4.01 L (4.20-5.40) M/uL Hgb 12.8 (12.0-16.0) g/dl Hct 38.0 (37.0-47.0) % MCV 94.8 (80.0-100.0) fL MCH 31.9 (25.0-34.0) pg MCHC 33.7 (32.0-36.0) g/dL RDW Std Deviation 41.8 (36.4-46.3) fL RDW Coeff of Peng 11.9 (11.5-14.5) % Plt Count 248 (130-400) K/uL MPV 11.0 (9.4-12.4) fL Sodium 138 (136-145) mmol/L Potassium 4.3 (3.5-5.1) mmol/L Chloride 106 (98-107) mmol/L Carbon Dioxide 22 (21-32) mmol/L Anion Gap 10 (3-11) BUN 15 (6-23) mg/dl Creatinine 0.89 (0.6-1.2) mg/dl Est Cr Clr Drug Dosing 80.6 ml/min Est GFR ( Amer) 77.2 ml/min Est GFR (Non-Af Amer) 66.6 ml/min BUN/Creatinine Ratio 16.9 (10-20) Glucose 146 H (70-99(Fasting)) mg/dl Calcium 8.7 (8.6-10.3) mg/dl Blood Type B Positive Antibody Screen NEGATIVE Signed By: <Electronically signed by Andriy Bartlett PA-C> 03/15/23 1013 <Electronically signed by Manuel Schneider MD> 03/15/23 1022 Date of Service March 15, 2023 Assessment & Plan (1) Primary osteoarthritis of right knee: Plan: POD# 1s/p Right Total Knee Arthroplasty(Right), lateral release, chip Acticoat superficial wound VAC, increased difficulty morbid obesity BMI 40.8 - Manuel Schneider MD EBL 10cc Pain control, bowel regimen per primary service WBC elevation likely 2nd to steroids. Appears afebrile. Hgb 14.6-> 12.8, acute blood loss from surgery as well as dilutional aspect with IVF DVT prophylaxis: Xarelto started today. Discussed monitoring for bleeding w/ her hx UC Wanting [facility] but OBs, would need admitted 3 midnights. Discussed [facility] w/ CM at bedside. Agreeable - referrals sent and possible discharge today if have bed/accepted (2) HTN (hypertension): Plan: recent adjustment to home meds which discontinued her amlodipine due to swelling and increased lisinopril to 40mg daily Continues on metoprolol succinate BID, lisinopril resumed this morning and kidney function stable (3) HLD (hyperlipidemia): Plan: continue statin daily (4) Post-surgical hypothyroidism: Plan: remains on Synthroid 125mcg daily consider repeating TSH outpatient if no recent checks given LE edema (reportedly resolved w/ discontinuation of amlodipine) --discussed w/ patient to have PCP check once recovered from knee surgery (5) Ulcerative colitis: Plan: follows GI, on Entyvio. recent bout diverticulitis/bleeding earlier this year which postponed current procedure no issues at present reported (6) Morbid obesity: Plan: weight loss/dietary changes to be encouraged Plan Thank you for allowing Hospitalist service to participate in the care of Ms. Parker. Hospitalist service will sign off at this time, anticipate discharge to [facility] if bed available today. Please call with any questions/concerns. Admission and Anticipated Discharge Date Admission Date: March 14, 2023 Supervising Physician Co-Signing Physician Notes PA Supervision Note: I did not personally see or examine the patient. I verified all hidalgo points and agree with JANENE Otoole with the following exceptions and/or additions: none. Patient seen today and no changes to care plan from yesterday's note. For discharge to [facility] today. Created:03/15/23 0721 Total Time Total Time Spent Total Time Spent (In Minutes): 5 Discharge Plan Discharge Items Patient Disposition: Transfer Inpatient Rehab Fac Reason For Visit: Right Knee Osteoarthritis Discharge Diagnosis: Right knee osteoarthritis Activity: Per Instructions section Non-emergency contact: Surgeon Call non-emergency contact if: you have any medication questions, your pain is not controlled, your pain is concerning for you, you have a fever, your temperature is above 101, your wound has increased redness and your wound has increased drainage Follow-up/Referrals: Anjelica Huff PA-C [Primary Care Provider] - Diet: Regular Addtl Attending Provider Instructions: ACTIVITY RECOMMENDATIONS: SELF CARE INSTRUCTIONS AFTER TOTAL KNEE REPLACEMENT A. You may need to continue a physical therapy program after discharge from the hospital. There are several options available to you. Your doctor will assist you in selecting the best one for you. 1. An out-patient facility 2 to 3 times a week for therapy or home therapy. 2. Continue working on all exercises taught to you in the hospital. Your goals should be to increase bending of your knee to 90 degrees and beyond and to fully straighten your knee. B. You may progress at your own pace from walking with a walker or crutches to a cane; then to no assistive devices. C. Make walking a part of your daily routine. Be up as much as comfortable with rest periods throughout the day. Rest with leg elevation is very important. Use the ice wrap frequently for the first 3-4 weeks. D. There are no restrictions on activities. You may ride in a car, shop, pa rticipate in physician office nurse and all social activities. E. Wear the long elastic stockings (MOLLY hose) 20 hours a day for 2 weeks after surgery. They can be removed several times a day for laundering and for a bath. F. You may shower, no tub baths until cleared by your doctor. SPECIAL CARE INSTRUCTIONS: VERY IMPORTANT TO READ AND REVIEW A. There are a few signs you need to watch for after you are home. Call [facility] if you notice any of the followin. Increased severe knee pain. Some pain is expected especially when you exercise. 2. Increased swelling in your leg or knee; pain or swelling of the calf muscle in either lower leg. 3. Any fluid drainage from the incision. 4. Shortness of breath or chest pain. B. Please call [facility] at if you have any concerns or questions about your operation or recovery. The doctor or his nurse will return your call promptly. C. You must take antibiotics before dental work, bladder, bowel or other surgery. Your doctor will provide you with a permanent care to carry describing this precaution. IMPORTANT: * REMEMBER TO TAKE ASPIRIN, 81 MG, TWICE DAILY FOR 4 WEEKS UNLESS OTHERWISE DIRECTED. THIS IS YOUR BLOOD THINNER. * HIGH RISK PATIENTS MAY BE PRESCRIBED A STRONGER BLOOD THINNER. THIS WILL BE PROVIDED AT DISCHARGE. * CALL IF INCREASED PAIN, REDNESS, DRAINAGE OR FEVER GREATER THAT 101. * WEAR MOLLY HOSE 20 HOURS PER DAY FOR 2 WEEKS. There is a large suction dressing covering your incision. This will help pull any excess drainage from the wound and allow your incision to heal properly. You may shower with this if you can keep the unit outside of the shower. If any bleeding or leakage is noted please call your doctor's office. This will remain on your incision for 7 days and then should be removed. This can be done yourself or by the home nursing staff if applicable. The entire unit is disposable once removed. Once removed, keep incision clean and dry. If redness or drainage is noted, please call your surgeon. IF INCISION IS LEAKING THROUGH DRESSING, CALL THE OFFICE . FOLLOW UP VISIT: If appointment is not already scheduled: Please call [facility] to make a follow-up appointment for 2 weeks after your surgery at . Stand-Alone Forms: My [facility] Skilled Items Lines: None Urinary Catheter: No Medications and DC Order Prescriptions: New Xarelto 10 mg Tablet 10 mg PO DAILY Qty: 30 0RF acetaminophen [Tylenol Extra Strength] 500 mg Tablet 1,000 mg PO Q8 Qty: 60 0RF oxycodone 5 mg Tablet 5 - 10 mg PO .Q4h-6h MDD 6 PRN (Reason: pain) Qty: 30 0RF Rx Instructions: Ongoing therapy, Dr. Schneider supervising sulfamethoxazole-trimethoprim [Bactrim DS] 800-160 mg tablet 1 tab PO BID 10 Days Qty: 20 0RF Continued metoprolol succinate 50 mg Tablet Extended Release 24 Hr 50 mg PO BID lisinopril 20 mg Tablet 40 mg PO QAM ascorbic acid (vitamin C) [Vitamin C] 500 mg Tablet 500 mg PO 1500 levothyroxine 125 mcg Tablet 125 mcg PO QAM calcitriol 0.25 mcg Capsule 0.5 mcg PO 1500 rosuvastatin 10 mg Tablet 10 mg PO QAM potassium chloride 20 mEq Tablet Extended Release 20 meq PO QPM Held Entyvio 300 mg Recon Soln 300 mg IV Q8WK Hold Instructions: Resume on 03/28/23. Discontinued acetaminophen [Tylenol Extra Strength] 500 mg Tablet 1,000 mg PO TID tramadol 50 mg Tablet 50 mg PO BID PRN (Reason: Pain) Discharge Orders: Discharge Order (Routine); Ordered 03/15/23 Ordered By: Andriy Bartlett Admission Data Admit Date/Time: 03/14/23 12:17 Attending Provider: Manuel Schneider Admit Provider: Manuel Schneider Primary Care Provider: Anjelica Huff Other Providers: Rodney Leyva ; Angeles Landavedre Other Interventions: Discharge Summary Assessment (RN) Last Done: 03/15/23 12:33
== END 2023-03-15 14:03 ==
LOC: 3E 07:19 → ASU 07:19